=== PATIENT | male | born 1990 | race African-American/Black ===

== ENCOUNTER 2016-07-03 16:19 | Emergency (ER) | payer MEDICAID, OTHER ==
--- NOTE | 2016-07-03 16:50 | EDPHY ---
H & P Time Seen by Provider: 07/03/16 16:48 HPI/ROS: CHIEF COMPLAINT: Back pain HISTORY OF PRESENT ILLNESS: This 25-year-old man presents with acute worsening of back pain at 1:30 p.m. today. He has had intermittent symptoms over the past year, and then today coughed and felt sudden worsening of his pain as noted above. He said it was spiking in his lumbar area and radiated down both legs but was not associated with weakness or numbness in his feet or any kind of incontinence. No other trauma and no fever. No urinary symptoms. REVIEW OF SYSTEMS: Eye: no change in vision ENT: no sore throat Cardiac: no chest pain or syncope Pulmonary: no cough or SOB Abdomen: no vomiting, diarrhea, abdominal pain Musculoskeletal: No arm or leg symptoms. Skin: no rash Neuro: no headache Constitutional: no fever : no urinary symptoms, no hematuria A comprehensive 10 point review of systems is otherwise negative aside from elements mentioned in the history of present illness. PAST MEDICAL HISTORY: Negative Social history: Denies IV drug abuse. His mother did have to have some kind of spine surgery in her 20s but he does not know the details. General Appearance: Alert and conversant, cooperative. Eyes: No scleral icterus. ENT, Mouth: Normal mucous membranes. Respiratory: Normal respiratory effort, breath sounds equal, lungs are clear to auscultation. Cardiovascular: Regular rate and rhythm. Gastrointestinal: Abdomen is soft and non tender. Neurological: Alert and oriented x3. Normally conversant. Face symmetric, normal movement and sensation in all extremities. Toes downgoing bilaterally. Straight leg raising positive at 45 degrees bilaterally. Normal 5/5 dorsiflexion and plantar flexion including extensor hallucis longus. Patellar reflexes are 2+ bilateral and ankle reflexes are 1+ bilateral and symmetric. Skin: Warm and dry, no rashes. Musculoskeletal: No peripheral edema and no joint swelling. No thoracic or lumbar spinal tenderness, a lot of paraspinal muscle tenderness to palpation. Psychiatric: Not agitated. Emergency Department course/MDM: PDMP query returns no Rx's. Percocet 1 p.o., lumbar spine x-rays. No neurologic objective deficit. No history of trauma fever or IV drugs. X-rays discussed with the patient. Plan for pain medication and outpatient follow-up. Smoking Status: Former smoker Constitutional: Initial Vital Signs Temperature (C) 37 C 07/03/16 16:21 Heart Rate 71 07/03/16 16:21 Respiratory Rate 16 07/03/16 16:21 Blood Pressure 156/82 H 07/03/16 16:21 O2 Sat (%) 98 07/03/16 16:21 O2 Delivery Mode Room Air Allergies/Adverse Reactions: No Known Allergies Allergy (Unverified 09/19/15 17:51) Home Medications: Medication Instructions Recorded oxyCODONE/APAP 5/325 [Percocet] 1 - 2 tab PO Q4-6PRN PRN #13 tab 07/03/16 MDM/Departure - MDM Diagnostics: Negative AP and lateral lumbar spine x-rays reviewed by myself. Medications Given: Discontinued Medications Oxycodone/Acetaminophen (Percocet 5/325) 1 tab PO EDNOW ONE Stop: 07/03/16 17:04 Last Admin: 07/03/16 17:29 Dose: 1 tab Differential Diagnosis: Differential considered including but not limited to spinal stenosis, disc herniation, musculoskeletal muscle spasm, spine fracture. - Depart Disposition: Home, Routine, Self-Care Clinical Impression: Back pain Instructions: Acute Low Back Pain (ED) Additional Instructions: Ibuprofen 600 mg by mouth every 6 hours as needed for the next 3 days. Please return immediately if you get worsening or severe pain, fever, any incontinence , weakness or numbness of lower extremities. Prescriptions: oxyCODONE/APAP 5/325 [Percocet] 1 - 2 tab PO Q4-6PRN PRN #13 tab PRN Reason: Pain Referrals: [facility] [Outside] - As per Instructions Phuc Ayala MD [Medical Doctor] - 5-7 days, call for appt. (spine referral)
[2016-07-03] MEDS ORDERED: OXYCODONE/APAP 5/325 TAB PO ONE (17:03)
[2016-07-03 17:58] VITALS: BP 118/78; PULSE 80; RESP 14; TEMP 98.4; O2SAT 94
--- NOTE | 2016-07-03 18:06 | DX ---
AP and Lateral Upright Views of the Lumbar Spine, at 5:00 p.m. Clinical History: 24-year-old male with low back pain, recently increasing. Comparison Study: None. Findings: There are 5 nonrib-bearing lumbar type vertebral bodies, although the 5th vertebral body is "transitional" with lumbarization on the right and sacralization on the left (where there is a pseud arthrosis). The vertebral body heights and posterior alignments are maintained. There is mild disk sp aman narrowing at L5-S1. The interpediculate distances are appropriate. The sacral arcuate lines and t he SI joints are normal. 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
== END 2016-07-03 17:57 | disposition home or self-care (01) ==
DX: M54.5 Low back pain (principal); Z87.891 Personal history of nicotine dependence